=== PATIENT | female | born 1955 | race Two or more races ===

== ENCOUNTER 2017-06-12 12:46 | Emergency (ER) | payer OTHER ==
[~2017-06-12] VITALS: Ht 162.6 cm; Wt 75.7 kg
== END 2017-06-12 15:11 | disposition home or self-care (01) ==
LOC: ER 12:46
DX: J11.1 Influenza due to unidentified influenza virus with other respiratory manifestations (principal)

== ENCOUNTER 2018-11-18 05:51 | Day surgery (SDC) | payer OTHER ==
[~2018-11-18 05:51] MED LIST: LIPITOR PO; METFORMIN HCL500 MG PO; ORTHOMEGA PO
== END 2018-11-18 12:10 | disposition home or self-care (01) ==
LOC: AMB-ENDOS 05:51
DX: D12.7 Benign neoplasm of rectosigmoid junction (principal); K64.8 Other hemorrhoids